=== PATIENT | female | born 1960 | race Caucasian/White ===

== ENCOUNTER → 2017-02-25 | Outpatient (CLI) | payer BC ==
[~2017-02-25] MED LIST: ACTONEL; ACTONEL PO; CALTRATE 600+D PO; EVISTA60 MG; EVISTA60 MG PO; KEFLEX PO; NADOLOL20 MG PO; NO MEDICATIONS; OMEPRAZOLE40 M1 PO; PREDNISONE; [UNRECOGNIZED DRUG - OTHER]
--- NOTE | ~2017-02-25 | MY11 ---
[facility] A Service of [facility] RADIOLOGY TEXT RESULTS PATIENT: SHEELA MAYERS LOCATION: [facility] : 60 UNIT #: [id number] AGE: [address]: Get Chavez SEX: F ORDER DR: [id number] [facility] [address] [place], [place] [address] [id number] O MR#: [id number] Acc #: [id number] NAME: SHEELA MAYERS. : 1960 SEX: F STUDY DATE/TIME: 02/25/2017 7:56 UNIT: [facility] ROOM: STUDY DESCRIPTION: MY Mammogram Screening Dig Martir Attending Physician: Get Chavez A.P.R.N. Referring Physician: Get Chavez A.P.R.N. Ordering Physician: Get Chavez A.P.R.N. Primary Care Physician: Get Chavez A.P.R.N. MEDICAL IMAGING REPORT This report is preliminary unless electronic signature is present EXAM Digital screening mammogram 02/25/2017. [facility] HISTORY 57-year-old woman with personal history of Hodgkin's disease and chemotherapy. Family history of breast cancer in aunt postmenopausal. Left breast biopsy February 2016. Annual screen. COMPARISON Mammograms date to 03/09/2007 with most recent screening exam 01/31/2016, followup left breast diagnostic evaluation 02/15/2016. Ultrasound-guided left breast biopsy 02/28/2016. FINDINGS Digital imaging of each breast was completed utilizing screening protocol. Review includes FDA approved CAD device. Breast parenchyma is partially fatty with moderate fibroglandular opacities remaining bilaterally. The parenchymal pattern is essentially stable with image-guided biopsy marker present immediately deep to the left nipple. I see no suspicious breast mass. There are no interval occurring microcalcifications and no architectural deformity. Breast/chest wall varicosities are noted. IMPRESSION Negative mammogram. Annual screening recommended. BIRADS 1 Patients over the age of 40 are entered into a reminder system with target due date for the next mammogram. A result letter will also be sent to the patient. BIRADS: 1 - negative STS. [facility] A Service of [facility] RADIOLOGY TEXT RESULTS PATIENT: SHEELA MAYERS LOCATION: [facility] : 60 UNIT #: [id number] AGE: [address]: Get Chavez SEX: F ORDER DR: Dictated by... Ramirez Keenan M.D. THIS IS AN ELECTRONICALLY VERIFIED REPORT Ramirez Keenan M.D. at 06/24/2017 8:43 AM KRISTEN/vadim TD: 06/10/2017 08:26 JOB #: [id number] MEDICAL IMAGING REPORT Page 1 of 1 COPY
== END | disposition home or self-care (01) ==
LOC: CWCC 07:34
DX: Z12.31 Encounter for screening mammogram for malignant neoplasm of breast (principal); Z85.71 Personal history of Hodgkin lymphoma; Z98.890 Other specified postprocedural states
CPT/HCPCS: G0202